=== PATIENT | female | born 1990 | race Two or more races ===

== ENCOUNTER → 2019-10-05 | Outpatient (CLI) | payer OTHER | END | disposition home or self-care (01) | LOC: PRENATAL 09-28 08:00 | DX: O34.12 Maternal care for benign tumor of corpus uteri, second trimester (principal); O34.42 Maternal care for other abnormalities of cervix, second trimester; O35.3XX1 Maternal care for (suspected) damage to fetus from viral disease in mother, fetus 1; O09.93 Supervision of high risk pregnancy, unspecified, third trimester ==

== ENCOUNTER 2019-11-24 18:03 | Outpatient (CLI) | payer OTHER | END 2019-11-25 21:37 | disposition home or self-care (01) | LOC: OBS/DEL 18:03 | DX: O26.842 Uterine size-date discrepancy, second trimester (principal); O60.02 Preterm labor without delivery, second trimester; O34.42 Maternal care for other abnormalities of cervix, second trimester; O34.12 Maternal care for benign tumor of corpus uteri, second trimester; D25.9 Leiomyoma of uterus, unspecified; O98.912 Unspecified maternal infectious and parasitic disease complicating pregnancy, second trimester ==

== ENCOUNTER → 2019-12-29 | Outpatient (CLI) | payer OTHER | END | disposition home or self-care (01) | LOC: PRENATAL 12-22 08:00 | DX: O26.843 Uterine size-date discrepancy, third trimester (principal); O34.13 Maternal care for benign tumor of corpus uteri, third trimester; O99.213 Obesity complicating pregnancy, third trimester; O34.43 Maternal care for other abnormalities of cervix, third trimester; O09.93 Supervision of high risk pregnancy, unspecified, third trimester ==

== ENCOUNTER 2020-01-12 15:30 | Inpatient (IN) | payer OTHER ==
[~2020-01-12] VITALS: Ht 160 cm; Wt 100.2 kg
[2020-02-17] MEDS ORDERED: PRENATAL TABLE1 EAC1 PO (07:07)
== END 2020-02-19 13:24 | disposition home or self-care (01) | DRG 807 ==
LOC: LDR 02-17 05:53 → OB/GYN 02-17 15:30
PROVIDERS: ADMIT Obstetrics & Gynecology
PROC: 10E0XZZ Delivery of Products of Conception, External Approach (ICD-10-PCS; principal; 2020-02-17)
PROC: 0KQM0ZZ Repair Perineum Muscle, Open Approach (ICD-10-PCS; 2020-02-17)
PROC: 4A1HXCZ Monitoring of Products of Conception, Cardiac Rate, External Approach (ICD-10-PCS; 2020-02-17)
DX: O70.1 Second degree perineal laceration during delivery (principal); Z37.0 Single live birth; Z3A.39 39 weeks gestation of pregnancy

== ENCOUNTER 2022-01-16 12:48 | Outpatient (CLI) | payer OTHER ==
[~2022-01-16 12:48] MED LIST: PRENATAL TABLE1 EAC1 PO
== END 2022-01-16 14:14 | disposition home or self-care (01) ==
LOC: PRENATAL 12:48
PROVIDERS: ATTEND Obstetrics & Gynecology Maternal & Fetal Medicine
DX: O35.0XX0 Maternal care for (suspected) central nervous system malformation in fetus, not applicable or unspecified (principal); O35.3XX0 Maternal care for (suspected) damage to fetus from viral disease in mother, not applicable or unspecified; O34.40 Maternal care for other abnormalities of cervix, unspecified trimester; Z3A.20 20 weeks gestation of pregnancy

== ENCOUNTER 2022-05-20 16:28 | Inpatient (IN) | payer OTHER ==
[~2022-05-20] VITALS: Ht 160 cm; Wt 100.7 kg
== END 2022-05-24 17:28 | disposition home or self-care (01) | DRG 807 ==
LOC: NST 16:28 → LDR 05-22 19:24 → OB/GYN 05-22 19:24
PROVIDERS: ADMIT Obstetrics & Gynecology; ATTEND Obstetrics & Gynecology
PROC: 4A1HXCZ Monitoring of Products of Conception, Cardiac Rate, External Approach (ICD-10-PCS; 2022-05-22)
PROC: 10E0XZZ Delivery of Products of Conception, External Approach (ICD-10-PCS; principal; 2022-05-23)
PROC: 3E033VJ Introduction of Other Hormone into Peripheral Vein, Percutaneous Approach (ICD-10-PCS; 2022-05-23)
PROC: 3E0P7VZ Introduction of Hormone into Female Reproductive, Via Natural or Artificial Opening (ICD-10-PCS; 2022-05-23)
DX: O36.4XX0 Maternal care for intrauterine death, not applicable or unspecified (principal); Z37.1 Single stillbirth; Z3A.38 38 weeks gestation of pregnancy; Z20.822 Contact with and (suspected) exposure to COVID-19